=== PATIENT | female | born 1995 ===

== ENCOUNTER 2020-07-11 05:02 | Emergency (ER) | payer SELFPAY ==
[~2020-07-11 05:02] MED LIST: PROPOFOL DRIP (ICU) 100 ML IV ONE
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
[2020-07-11] MEDS ORDERED: LACTATED RINGERS 1,000 ML IV STA (05:23)
[2020-07-11] MEDS ORDERED: TETANUS,DIPTH,PERTUSS P/F (BOOSTRIX) 0.5 ML VIAL IM ONE (05:30)
[2020-07-11 05:32] LABS: ALBUMIN 4.5 GM/DL (3.2-4.5)
[2020-07-11 05:33] LABS: BASOPHILS % (AUTO) 1 % (0-10); CHLORIDE 108 MMOL/L (98-107); EOSINOPHILS # (AUTO) 0.1 10^3/uL (0.0-0.3); EOSINOPHILS % (AUTO) 1 % (0-10); HEMATOCRIT 36 % (35-52); HEMOGLOBIN 12.1 g/dL (11.5-16.0); LYMPHOCYTES # (AUTO) 2.3 10^3/uL (1.0-4.0); LYMPHOCYTES % (AUTO) 37 % (12-44); MEAN CORPUSCULAR HEMOGLOBIN 31 pg (25-34); MEAN CORPUSCULAR HGB CONC 34 g/dL (32-36); MEAN CORPUSCULAR VOLUME 94 fL (80-99); MONOCYTES # (AUTO) 0.5 10^3/uL (0.0-1.0); MONOCYTES % (AUTO) 7 % (0-12); NEUTROPHILS # (AUTO) 3.4 10^3/uL (1.8-7.8); NEUTROPHILS % (AUTO) 54 % (42-75); PLATELET COUNT 240 10^3/uL (130-400); POTASSIUM 3.9 MMOL/L (3.6-5.0); SODIUM 140 MMOL/L (135-145); WHITE BLOOD COUNT 6.3 10^3/uL (4.3-11.0)
[2020-07-11 05:34] LABS: CALCIUM 8.2 MG/DL (8.5-10.1)
[2020-07-11 05:35] LABS: GLUCOSE 109 MG/DL (70-105); TOTAL PROTEIN 7.3 GM/DL (6.4-8.2)
[2020-07-11 05:36] LABS: CARBON DIOXIDE 19 MMOL/L (21-32)
[2020-07-11 05:37] LABS: BILIRUBIN,TOTAL 0.3 MG/DL (0.1-1.0)
[2020-07-11 05:39] LABS: ALKALINE PHOSPHATASE 39 U/L (40-136); CREATININE SERUM 0.77 MG/DL (0.60-1.30); GFR ESTIMATED > 60
[2020-07-11 05:40] LABS: BUN/CREATININE RATIO 19
[2020-07-11 05:42] LABS: ALANINE AMINOTRANSFERASE 15 U/L (0-55)
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
[2020-07-11 05:48] LABS: BILIRUBIN,URINE NEGATIVE (NEGATIVE); CLARITY,URINE CLEAR; COLOR,URINE YELLOW; GLUCOSE, URINE (UA) NEGATIVE (NEGATIVE); KETONES,URINE NEGATIVE (NEGATIVE); LEUKOCYTE ESTERASE ,URINE NEGATIVE (NEGATIVE); NITRITE,URINE NEGATIVE (NEGATIVE); PROTEIN,URINE NEGATIVE (NEGATIVE)
[2020-07-11 05:55] LABS: BACTERIA,URINE TRACE /HPF; SQUAMOUS EPITHELIAL CELL,UR RARE /HPF
--- NOTE | 2020-07-11 05:57 | Diagnostic Imaging Report ---
CHEST 1 VIEW, AP/PA ONLY Indication: Intubation Comparison: None available. Findings: No focal airspace disease in the visualized lungs. Please note that the posterior lower lobes are poorly evaluated by portable radiography. No pleural effusion or pneumothorax. Normal cardiomediastinal silhouette.The tip of the ET tube is 5 cm above the nahomy. Impression: 1. Well-positioned ET tube. 2. No acute abnormality appreciated. Dictated by: Dictated on workstation # [id number]
[2020-07-11] MEDS ORDERED: fentaNYL INJECTION 100 MCG/2 ML AMP ONE (06:00)
[2020-07-11] MEDS ORDERED: fentaNYL INJECTION 100 MCG/2 ML AMP IVP ONE (06:00)
[2020-07-11 06:10] VITALS: BP 116/86
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
[2020-07-11] MEDS ORDERED: LACTATED RINGERS 1,000 ML IV SCH (07:30)
[2020-07-11] MEDS ORDERED: LACTATED RINGERS 1,000 ML IV ONE (07:30)
== END 2020-07-11 06:10 | disposition short-term general hospital (02) ==
LOC: ER 05:11
DX: T23.252A Burn of second degree of left palm, initial encounter (principal); T23.272A Burn of second degree of left wrist, initial encounter; T20.00XA Burn of unspecified degree of head, face, and neck, unspecified site, initial encounter; Z23 Encounter for immunization; X08.8XXA Exposure to other specified smoke, fire and flames, initial encounter
CPT/HCPCS: 51702; 71045; 80053; 81000; 82375; 85025; 99291; G0390; 36415; 90715